=== PATIENT | male | born 1995 | race Two or more races ===

== ENCOUNTER 2020-04-24 13:03 | Emergency (ER) | payer BC ==
[~2020-04-24] VITALS: Ht 177.8 cm; Wt 70.5 kg
[2020-04-24 13:08] VITALS: BP 123/75
[2020-04-24 14:09] LABS: COVID AG,FIA SOURCE NASOPHARYNGEAL
== END 2020-04-24 14:14 | disposition home or self-care (01) ==
LOC: EMS 13:03
DX: Z20.828 Contact with and (suspected) exposure to other viral communicable diseases (principal)
CPT/HCPCS: 87426; 99283; C9803; U0003